=== PATIENT | female | born 1960 | race Caucasian/White ===

== ENCOUNTER 2020-10-01 18:01 | Emergency (ER) | payer OTHER ==
[~2020-10-01] VITALS: Ht 165.1 cm; Wt 102.1 kg
[~2020-10-01 18:01] MED LIST: FERROUS GLUCON324 M1 PO; HCTZ; KEFLEX500 MG PO; NEXIUM PO; SYNTHROID PO; TRIAMTERENE-HC1 EAC1 PO; VICODIN 5-5001 EACH PO
[2020-10-01] MEDS ORDERED: HYDROCODON-ACE1 EAC7 PO (19:51)
[2020-10-01 20:00] VITALS: BP 164/100
== END 2020-10-01 20:21 | disposition home or self-care (01) ==
LOC: M.ERS 18:01
DX: S82.842A Displaced bimalleolar fracture of left lower leg, initial encounter for closed fracture (principal); E03.9 Hypothyroidism, unspecified; W01.0XXA Fall on same level from slipping, tripping and stumbling without subsequent striking against object, initial encounter; Y93.89 Activity, other specified; Y92.89 Other specified places as the place of occurrence of the external cause; Y99.8 Other external cause status

== ENCOUNTER → 2020-10-07 | Outpatient (CLI) | payer OTHER ==
[~2020-10-07] MED LIST changes: +HYDROCODON-ACE1 EAC7 PO
== END ==
LOC: M.LAB 05:16
PROVIDERS: ATTEND Anesthesiology
DX: S82.852A Displaced trimalleolar fracture of left lower leg, initial encounter for closed fracture (principal); E87.6 Hypokalemia; X58.XXXA Exposure to other specified factors, initial encounter; Y93.89 Activity, other specified; Y92.89 Other specified places as the place of occurrence of the external cause; Y99.8 Other external cause status